=== PATIENT | female | born 1940 | race Caucasian/White ===

== ENCOUNTER 2020-12-25 14:56 | Inpatient (IN) ==
[2020-12-25] MEDS ORDERED: flumazeniL 0.5 MG/5 ML VIAL IVP ONE ×2 (15:13→23:11)
[2020-12-25 15:44] LABS: Basophils % 0.3 %; Eosinophils % 0.5 %; Hematocrit 33.2 % (35.3-44.9); Hemoglobin 10.8 g/dL (11.5-15.4); Immature Granulocytes % 0.3 % (0-4); Lymphocytes # 0.7 K/mcL (0.6-4.6); Lymphocytes % 12.8 %; Mean Corpuscular HGB Conc 32.5 g/dL (31.6-35.5); Mean Corpuscular Hemoglobin 31.8 pg (28.0-33.3); Mean Corpuscular Volume 97.6 fL (83.0-100.0); Mean Platelet Volume 12.7 fL (9.4-12.4); Monocytes # 0.3 K/mcL (0.0-1.3); Monocytes % 5.9 %; Neutrophils # 4.6 K/mcL (1.6-8.9); Platelet Count 154 K/mcL (140-400); Red Cell Distribution Width 14.3 % (11.5-14.5); Segmented Neutrophils % 80.2 %; White Blood Count 5.7 K/mcL (4.3-11.1)
[2020-12-25 16:06] LABS: Alanine Aminotransferase 73 Units/L (7-52); Albumin 3.8 g/dL (3.5-5.7); Alkaline Phosphatase 315 Units/L (34-104); Aspartate Amino Transferase 90 Units/L (13-39); BUN/Creatinine Ratio 19 (6-26); Bilirubin,Direct 0.1 mg/dL (0.0-0.2); Bilirubin,Indirect 0.3 mg/dL (0.0-1.0); Bilirubin,Total 0.4 mg/dL (0.3-1.0); Blood Urea Nitrogen 36 mg/dL (8-23); Carbon Dioxide 30 mEq/L (23-29); Chloride 95 mEq/L (98-107); Globulin 3.9 g/dL (2.4-3.5); Glucose 212 mg/dL (70-105); Osmolality,Calculated 297 (280-300); Potassium 4.3 mEq/L (3.5-5.1); Sodium 136 mEq/L (136-145); Total Protein 7.7 g/dL (6.4-8.9); Troponin I < 0.03 ng/mL (< 0.04); eGFR For African Americans 32 (> 60); eGFR For Non-African Americans 26 (> 60)
[2020-12-25 16:32] LABS: Amorphous Sediment,Urine Few per hpf (None-Few); Bilirubin,Urine Negative (Negative); Blood,Urine Negative (Negative); Clarity,Urine Turbid (Clear); Color,Urine Light-Yellow (Yellow); Glucose,Urine (UA) Normal (Normal); Hyaline Casts,Urine Many per lpf (None Seen); Ketones,Urine Negative (Negative); Leukocyte Esterase,Urine Negative (Negative); Mucus,Urine Few per lpf (None-Few); Nitrite,Urine Negative (Negative); Protein,Urine 70 mg/dL (Neg-Trace); RBC,Urine 0-3 per hpf (0-3); Specific Gravity,Urine 1.014 (1.010-1.025); Squamous Epithelial Cell,Urine Few per hpf (None-Few); Urobilinogen,Urine Normal (Normal); WBC,Urine 0-3 per hpf (0-3)
[2020-12-25] MEDS ORDERED: Furosemide 20 MG/2 ML VIAL IVP ONE (16:45)
[2020-12-25] MEDS ORDERED: Perflutren Lipid Microsphere 1.3 ML in 0.9 % Sodium Chloride 8.7 ML IVP PRN (17:05)
[2020-12-25 17:11] LABS: Influenza A PCR Negative (Negative); Influenza B PCR Negative (Negative); Resp. Syncytial Virus PCR Negative (Negative)
[2020-12-25 17:14] LABS: SARS-CoV-2 by PCR (In House) Negative (Negative)
[2020-12-25 18:31] LABS: ABG Base Excess 4 mEq/L (-2 to 3); ABG HCO3 30 mEq/L (21-27); ABG Oxygen Saturation 94 % (95-98); ABG PCO2 50 mmHg (35-45); ABG PH 7.39 pH Units (7.32-7.45); ABG PO2 73 mmHg (85-104); ABG TCO2 31 mEq/L (20-26); Blood Gas FiO2 3.5 (1-15=lpm or21-100=%)
[2020-12-25] MEDS ORDERED: D5% in Water 1,000 ML IVC PRN (19:56)
[2020-12-25] MEDS ORDERED: Dextrose Gel 15 GM/37.5 ML TUBE PO PRN ×2 (19:56)
[2020-12-25] MEDS: Furosemide 20 MG/2 ML VIAL IVP SCH (20:31)
[2020-12-25] MEDS: *HR* Heparin 5,000 UNIT/ML VIAL SQ SCH (20:31)
[2020-12-25] MEDS ORDERED: Morphine Sulfate 2 MG/ML SYRINGE IVP ONE (20:49)
[2020-12-25] MEDS ORDERED: *HR* LORazepam 2 MG/ML VIAL IVP ONE (22:16)
[2020-12-25] MEDS: Insulin LISPRO 300 UNITS/3 ML VIAL SUBQ SCH (22:43)
[2020-12-25] MEDS: cloNIDine HCL 0.1 MG TABLET PO SCH (22:51)
[2020-12-25] MEDS: Naloxone 0.4 MG/ML INJ IVP PRN ×2 (23:11→23:15)
[2020-12-25 23:18] LABS: ABG Base Excess 5 mEq/L (-2 to 3); ABG HCO3 33 mEq/L (21-27); ABG Oxygen Saturation 97 % (95-98); ABG PCO2 67 mmHg (35-45); ABG PO2 99 mmHg (85-104); ABG TCO2 35 mEq/L (20-26); Blood Gas FiO2 4.5 (1-15=lpm or21-100=%)
[2020-12-25] MEDS: Ipratropium/Albuterol Neb 3 ML IH PRN (23:33)
[2020-12-26 03:49] LABS: Basophils % 0.2 %; Eosinophils % 0.8 %; Hematocrit 29.3 % (35.3-44.9); Hemoglobin 9.4 g/dL (11.5-15.4); Immature Granulocytes % 0.2 % (0-4); Lymphocytes % 18.6 %; Mean Corpuscular HGB Conc 32.1 g/dL (31.6-35.5); Mean Corpuscular Hemoglobin 31.1 pg (28.0-33.3); Mean Platelet Volume 12.4 fL (9.4-12.4); Monocytes # 0.6 K/mcL (0.0-1.3); Monocytes % 10.7 %; Neutrophils # 3.6 K/mcL (1.6-8.9); Nucleated Red Blood Cells 0.4 /100 WBC (0); Platelet Count 136 K/mcL (140-400); Red Blood Count 3.02 M/mcL (3.82-4.97); Segmented Neutrophils % 69.5 %; White Blood Count 5.2 K/mcL (4.3-11.1)
[2020-12-26 03:53] LABS: Calcium 6.5 mg/dL (8.6-10.3); Magnesium 1.7 mg/dL (1.6-2.6); Phosphorous 3.7 mg/dL (2.7-4.5); Potassium 4.1 mEq/L (3.5-5.1)
[2020-12-26 04:07] LABS: INR 1.2; Prothrombin Time 13.4 Seconds (9.4-12.1)
[2020-12-26 04:08] LABS: Thyroid Stimulating Hormone 3.201 mcIU/mL (0.340-5.600)
[2020-12-26 04:09] LABS: Activated Partial Thrombo Time 49.7 Seconds (26.0-36.0)
[2020-12-26] MEDS: *HR* Heparin 5,000 UNIT/ML VIAL SQ SCH ×2 (06:00→16:42)
[2020-12-26] MEDS: Insulin LISPRO 300 UNITS/3 ML VIAL SUBQ SCH ×4 (07:17→20:15)
[2020-12-26] MEDS: cloNIDine HCL 0.1 MG TABLET PO SCH ×2 (08:32→20:48)
[2020-12-26] MEDS: lisinopriL 5 MG TABLET PO SCH (08:32)
[2020-12-26] MEDS: Furosemide 20 MG/2 ML VIAL IVP SCH ×2 (08:32→20:48)
[2020-12-26] MEDS: Ipratropium/Albuterol Neb 3 ML IH PRN ×2 (10:52→21:06)
[2020-12-26] MEDS: *HR* Dextrose 50 % in Water (Syg) 50 ML SYRINGE IVP PRN (11:20)
[2020-12-26 12:38] LABS: Albumin 3.1 g/dL (3.5-5.7); Albumin/Globulin Ratio 0.9 (1.1-2.2); Bilirubin,Direct 0.1 mg/dL (0.0-0.2); Bilirubin,Indirect 0.2 mg/dL (0.0-1.0); Bilirubin,Total 0.3 mg/dL (0.3-1.0); Globulin 3.4 g/dL (2.4-3.5); Total Protein 6.5 g/dL (6.4-8.9)
[2020-12-26 14:37] LABS: Total Protein,Pleural Fluid 2.7 g/dL
[2020-12-26 16:16] LABS: RBC,Pleural Fluid 2000 RBC/mcL
[2020-12-26 16:44] LABS: Appearance of Pleural Fl Hazy (Clear)
[2020-12-26] MEDS ORDERED: Acetaminophen 325 MG TABLET PO PRN ×2 (20:59→22:05)
[2020-12-27 05:14] LABS: Hematocrit 28.8 % (35.3-44.9); Hemoglobin 9.8 g/dL (11.5-15.4); Mean Corpuscular Hemoglobin 32.8 pg (28.0-33.3); Mean Corpuscular Volume 96.3 fL (83.0-100.0); Mean Platelet Volume 12.7 fL (9.4-12.4); Platelet Count 164 K/mcL (140-400); Red Blood Count 2.99 M/mcL (3.82-4.97); White Blood Count 5.9 K/mcL (4.3-11.1)
[2020-12-27 05:48] LABS: Albumin 2.8 g/dL (3.5-5.7); Albumin/Globulin Ratio 0.8 (1.1-2.2); Bilirubin,Total 0.3 mg/dL (0.3-1.0); Calcium 6.6 mg/dL (8.6-10.3); Globulin 3.5 g/dL (2.4-3.5); Potassium 4.6 mEq/L (3.5-5.1); Total Protein 6.3 g/dL (6.4-8.9)
[2020-12-27] MEDS: *HR* Heparin 5,000 UNIT/ML VIAL SQ SCH ×2 (06:37→17:44)
[2020-12-27] MEDS: *HR* Dextrose 50 % in Water (Syg) 50 ML SYRINGE IVP PRN (07:41)
[2020-12-27] MEDS: Insulin LISPRO 300 UNITS/3 ML VIAL SUBQ SCH ×4 (07:41→20:24)
[2020-12-27] MEDS: cloNIDine HCL 0.1 MG TABLET PO SCH (07:42)
[2020-12-27] MEDS: lisinopriL 5 MG TABLET PO SCH (07:42)
[2020-12-27 09:51] LABS: Phosphorous 3.9 mg/dL (2.7-4.5); Uric Acid 5.9 mg/dL (2.3-7.6)
[2020-12-27] MEDS ORDERED: 0.9 % Sodium Chloride 1,000 ML ONE (11:07)
[2020-12-27] MEDS ORDERED: 0.9 % Sodium Chloride 1,000 ML IVC ONE (11:17)
[2020-12-27 11:45] LABS: Hepatitis B Surface Antigen Nonreactive (Nonreactive)
[2020-12-27 11:52] LABS: Basophils % 0.3 %; Eosinophils # 0.1 K/mcL (0.0-0.6); Eosinophils % 1.2 %; Hematocrit 28.1 % (35.3-44.9); Hemoglobin 9.1 g/dL (11.5-15.4); Immature Granulocytes % 0.2 % (0-4); Lymphocytes # 1.3 K/mcL (0.6-4.6); Lymphocytes % 20.3 %; Mean Corpuscular HGB Conc 32.4 g/dL (31.6-35.5); Mean Corpuscular Hemoglobin 31.8 pg (28.0-33.3); Mean Corpuscular Volume 98.3 fL (83.0-100.0); Mean Platelet Volume 11.7 fL (9.4-12.4); Monocytes # 0.8 K/mcL (0.0-1.3); Monocytes % 11.5 %; Neutrophils # 4.4 K/mcL (1.6-8.9); Platelet Count 116 K/mcL (140-400); Red Blood Count 2.86 M/mcL (3.82-4.97); Red Cell Distribution Width 14.1 % (11.5-14.5); Segmented Neutrophils % 66.5 %; White Blood Count 6.6 K/mcL (4.3-11.1)
[2020-12-27 12:14] LABS: Hepatitis B Core IgM Nonreactive (Nonreactive); Hepatitis C Virus Antibody Nonreactive (Nonreactive)
[2020-12-27 12:15] LABS: Alanine Aminotransferase 41 Units/L (7-52); Albumin 2.7 g/dL (3.5-5.7); Albumin/Globulin Ratio 0.8 (1.1-2.2); Alkaline Phosphatase 238 Units/L (34-104); Aspartate Amino Transferase 47 Units/L (13-39); BUN/Creatinine Ratio 19 (6-26); Bilirubin,Total 0.3 mg/dL (0.3-1.0); Blood Urea Nitrogen 41 mg/dL (8-23); Calcium 6.5 mg/dL (8.6-10.3); Carbon Dioxide 31 mEq/L (23-29); Chloride 100 mEq/L (98-107); Globulin 3.2 g/dL (2.4-3.5); Glucose 122 mg/dL (70-105); Osmolality,Calculated 299 (280-300); Potassium 4.1 mEq/L (3.5-5.1); Sodium 139 mEq/L (136-145); Total Protein 5.9 g/dL (6.4-8.9); Troponin I < 0.03 ng/mL (< 0.04); eGFR For African Americans 26 (> 60); eGFR For Non-African Americans 22 (> 60)
[2020-12-27 12:16] LABS: Hepatitis A Antibody IgM Nonreactive (Nonreactive)
[2020-12-27 13:51] LABS: Bacteria,Urine Few per hpf (None-Few); Bilirubin,Urine Negative (Negative); Blood,Urine Large (Negative); Clarity,Urine Turbid (Clear); Color,Urine Light-Yellow (Yellow); Glucose,Urine (UA) Normal (Normal); Hyaline Casts,Urine Few per lpf (None Seen); Ketones,Urine Negative (Negative); Leukocyte Esterase,Urine Large (Negative); Mucus,Urine Few per lpf (None-Few); Nitrite,Urine Negative (Negative); Protein,Urine 50 mg/dL (Neg-Trace); RBC,Urine TNTC per hpf (0-3); Specific Gravity,Urine 1.013 (1.010-1.025); Urobilinogen,Urine Normal (Normal); WBC,Urine 50-100 per hpf (0-3)
[2020-12-27] MEDS: Piperacillin/Tazobactam 3.375 GM in 0.9 % Sodium Chloride Mini Bag 100 ML IVPB SCH (16:07)
[2020-12-27] MEDS ORDERED: polyethylene glycoL 3350 17 GM POWD.PACK PO ONE (20:00)
[2020-12-27] MEDS ORDERED: Albumin 25% 25gram/100mL 25 GM/100 ML IV.SOLN IVPB ONE (21:55)
[2020-12-27] MEDS ORDERED: Furosemide 20 MG/2 ML VIAL IVP ONE (21:55)
[2020-12-27 23:10] LABS: Protein/Creatinine Ratio,Urine 1.59 mg/mg (0.00-0.20); Sodium, Urine 40.6 mEq/L
[2020-12-28] MEDS: Piperacillin/Tazobactam 3.375 GM in 0.9 % Sodium Chloride Mini Bag 100 ML IVPB SCH ×4 (00:50→23:51)
[2020-12-28] MEDS: Ondansetron 4 MG/2 ML VIAL IVP PRN (01:50)
[2020-12-28] MEDS ORDERED: Furosemide 20 MG/2 ML VIAL IVP ONE (01:57)
[2020-12-28] MEDS ORDERED: Acetaminophen 325 MG TABLET PO PRN ×2 (02:01→14:45)
[2020-12-28] MEDS: *HR* HYDROcodone/Acet 5/325 mg TABLET PO PRN ×2 (02:26→10:11)
[2020-12-28] MEDS: *HR* Heparin 5,000 UNIT/ML VIAL SQ SCH (05:45)
[2020-12-28 05:49] LABS: Hematocrit 30.2 % (35.3-44.9); Hemoglobin 9.7 g/dL (11.5-15.4); Mean Corpuscular HGB Conc 32.1 g/dL (31.6-35.5); Mean Corpuscular Hemoglobin 31.5 pg (28.0-33.3); Mean Corpuscular Volume 98.1 fL (83.0-100.0); Mean Platelet Volume 12.8 fL (9.4-12.4); Red Blood Count 3.08 M/mcL (3.82-4.97); White Blood Count 7.3 K/mcL (4.3-11.1)
[2020-12-28 06:06] LABS: Albumin 3.2 g/dL (3.5-5.7); Albumin/Globulin Ratio 0.9 (1.1-2.2); Bilirubin,Total 0.4 mg/dL (0.3-1.0); Globulin 3.4 g/dL (2.4-3.5); Potassium 4.6 mEq/L (3.5-5.1); Total Protein 6.6 g/dL (6.4-8.9)
[2020-12-28] MEDS: Insulin LISPRO 300 UNITS/3 ML VIAL SUBQ SCH ×4 (07:31→20:53)
[2020-12-28] MEDS: Furosemide 20 MG TABLET PO SCH ×2 (09:46→20:50)
[2020-12-28] MEDS ORDERED: *HR* HYDROcodone/Acet 5/325 mg TABLET PO PRN (14:25)
[2020-12-28] MEDS ORDERED: *HR* Heparin 5,000 UNIT/ML VIAL IVP ONE (14:52)
[2020-12-28] MEDS ORDERED: *HR* Heparin 5,000 UNIT/ML VIAL IVP PRN ×2 (14:52)
[2020-12-28] MEDS: Heparin 25,000UNIT/250ML 1/2NS 25,000 UNIT/250 ML IV.SOLN IVC SCH (17:26)
[2020-12-28 17:28] LABS: Hematocrit 31.8 % (35.3-44.9); Hemoglobin 10.2 g/dL (11.5-15.4); Mean Corpuscular HGB Conc 32.1 g/dL (31.6-35.5); Mean Corpuscular Hemoglobin 31.6 pg (28.0-33.3); Mean Corpuscular Volume 98.5 fL (83.0-100.0); Mean Platelet Volume 11.9 fL (9.4-12.4); Platelet Count 133 K/mcL (140-400); Red Blood Count 3.23 M/mcL (3.82-4.97); Red Cell Distribution Width 13.9 % (11.5-14.5)
[2020-12-28] MEDS: hydrALAZINE 25 MG TABLET PO SCH (17:28)
[2020-12-28] MEDS: Acetaminophen 325 MG TABLET PO PRN ×2 (17:28→23:52)
[2020-12-28] MEDS: Isosorbide MONOnitrate (24 HR) 30 MG TAB.ER.24H PO SCH (17:28)
[2020-12-28 17:42] LABS: INR 1.2; Prothrombin Time 12.9 Seconds (9.4-12.1)
[2020-12-28 17:44] LABS: Heparin anti-factor XA UFH 0.04 IU/mL (0.30-0.70)
[2020-12-28] MEDS: Ipratropium/Albuterol Neb 3 ML IH PRN (18:33)
[2020-12-28] MEDS: polyethylene glycoL 3350 17 GM POWD.PACK PO SCH (23:50)
[2020-12-29] MEDS: hydrALAZINE 25 MG TABLET PO SCH ×3 (00:01→16:35)
[2020-12-29 01:50] LABS: Hemoglobin 9.2 g/dL (11.5-15.4); Mean Corpuscular HGB Conc 32.9 g/dL (31.6-35.5); Mean Corpuscular Hemoglobin 32.1 pg (28.0-33.3); Mean Corpuscular Volume 97.6 fL (83.0-100.0); Platelet Count 124 K/mcL (140-400); Red Blood Count 2.87 M/mcL (3.82-4.97); Red Cell Distribution Width 13.8 % (11.5-14.5); White Blood Count 7.3 K/mcL (4.3-11.1)
[2020-12-29 02:05] LABS: Albumin 2.9 g/dL (3.5-5.7); Albumin/Globulin Ratio 0.9 (1.1-2.2); Bilirubin,Total 0.3 mg/dL (0.3-1.0); Calcium 7.1 mg/dL (8.6-10.3); Globulin 3.2 g/dL (2.4-3.5); Potassium 4.6 mEq/L (3.5-5.1); Total Protein 6.1 g/dL (6.4-8.9)
[2020-12-29] MEDS: *HR* Dextrose 50 % in Water (Syg) 50 ML SYRINGE IVP PRN (07:59)
[2020-12-29] MEDS: Insulin LISPRO 300 UNITS/3 ML VIAL SUBQ SCH ×4 (08:02→20:42)
[2020-12-29] MEDS: Isosorbide MONOnitrate (24 HR) 30 MG TAB.ER.24H PO SCH (08:03)
[2020-12-29] MEDS: polyethylene glycoL 3350 17 GM POWD.PACK PO SCH (08:03)
[2020-12-29] MEDS: Piperacillin/Tazobactam 3.375 GM in 0.9 % Sodium Chloride Mini Bag 100 ML IVPB SCH ×2 (08:04→16:41)
[2020-12-29] MEDS: Ipratropium/Albuterol Neb 3 ML IH PRN (08:33)
[2020-12-29] MEDS: Acetaminophen 325 MG TABLET PO PRN (12:52)
[2020-12-29] MEDS: Furosemide 40 MG TABLET PO SCH (12:55)
[2020-12-29] MEDS: Albumin 25% 25gram/100mL 25 GM/100 ML IV.SOLN IVPB SCH (16:35)
[2020-12-29 21:26] LABS: Fluid Source for Cholesterol PLEURAL FLUID
[2020-12-30] MEDS: Albumin 25% 25gram/100mL 25 GM/100 ML IV.SOLN IVPB SCH ×4 (00:31→23:02)
[2020-12-30] MEDS: hydrALAZINE 25 MG TABLET PO SCH ×4 (00:32→23:02)
[2020-12-30 05:05] LABS: Hematocrit 28.1 % (35.3-44.9); Mean Corpuscular Hemoglobin 31.4 pg (28.0-33.3); Mean Corpuscular Volume 97.9 fL (83.0-100.0); Mean Platelet Volume 12.8 fL (9.4-12.4); Platelet Count 114 K/mcL (140-400); Red Blood Count 2.87 M/mcL (3.82-4.97); Red Cell Distribution Width 14.1 % (11.5-14.5); White Blood Count 5.1 K/mcL (4.3-11.1)
[2020-12-30 05:09] LABS: Albumin 3.8 g/dL (3.5-5.7); Albumin/Globulin Ratio 1.2 (1.1-2.2); Bilirubin,Total 0.4 mg/dL (0.3-1.0); Calcium 7.3 mg/dL (8.6-10.3); Globulin 3.2 g/dL (2.4-3.5); Potassium 4.6 mEq/L (3.5-5.1)
[2020-12-30] MEDS: Piperacillin/Tazobactam 3.375 GM in 0.9 % Sodium Chloride Mini Bag 100 ML IVPB SCH ×2 (06:05→17:37)
[2020-12-30] MEDS: Heparin 25,000UNIT/250ML 1/2NS 25,000 UNIT/250 ML IV.SOLN IVC SCH ×2 (07:19→08:03)
[2020-12-30] MEDS: polyethylene glycoL 3350 17 GM POWD.PACK PO SCH (08:04)
[2020-12-30] MEDS: Isosorbide MONOnitrate (24 HR) 30 MG TAB.ER.24H PO SCH (08:06)
[2020-12-30] MEDS: Insulin LISPRO 300 UNITS/3 ML VIAL SUBQ SCH ×4 (08:24→20:44)
[2020-12-30] MEDS: Furosemide 40 MG TABLET PO SCH (09:46)
[2020-12-30 10:41] LABS: Cholesterol,Body Fluid 38 mg/dL
[2020-12-30] MEDS: Ipratropium/Albuterol Neb 3 ML IH PRN (11:35)
[2020-12-30] MEDS: Furosemide 20 MG TABLET PO SCH (17:36)
[2020-12-31] MEDS: Ipratropium/Albuterol Neb 3 ML IH PRN ×2 (00:18→17:11)
[2020-12-31 04:43] LABS: Basophils % 0.4 %; Eosinophils # 0.1 K/mcL (0.0-0.6); Eosinophils % 1.6 %; Hematocrit 25.1 % (35.3-44.9); Hemoglobin 8.3 g/dL (11.5-15.4); Immature Granulocytes % 0.4 % (0-4); Lymphocytes % 18.9 %; Mean Corpuscular HGB Conc 33.1 g/dL (31.6-35.5); Mean Corpuscular Hemoglobin 32.4 pg (28.0-33.3); Mean Platelet Volume 12.9 fL (9.4-12.4); Monocytes # 0.7 K/mcL (0.0-1.3); Monocytes % 13.1 %; Neutrophils # 3.6 K/mcL (1.6-8.9); Platelet Count 104 K/mcL (140-400); Red Blood Count 2.56 M/mcL (3.82-4.97); Red Cell Distribution Width 14.4 % (11.5-14.5); Segmented Neutrophils % 65.6 %; White Blood Count 5.5 K/mcL (4.3-11.1)
[2020-12-31 05:00] LABS: Calcium 7.6 mg/dL (8.6-10.3); Potassium 4.5 mEq/L (3.5-5.1)
[2020-12-31] MEDS: Furosemide 20 MG TABLET PO SCH ×2 (05:16→17:21)
[2020-12-31] MEDS: Piperacillin/Tazobactam 3.375 GM in 0.9 % Sodium Chloride Mini Bag 100 ML IVPB SCH ×2 (05:17→17:22)
[2020-12-31] MEDS: Insulin LISPRO 300 UNITS/3 ML VIAL SUBQ SCH ×4 (07:18→20:40)
[2020-12-31] MEDS: polyethylene glycoL 3350 17 GM POWD.PACK PO SCH (08:57)
[2020-12-31] MEDS: Albumin 25% 25gram/100mL 25 GM/100 ML IV.SOLN IVPB SCH (09:05)
[2020-12-31] MEDS: hydrALAZINE 25 MG TABLET PO SCH ×3 (09:05→23:49)
[2020-12-31] MEDS: Isosorbide MONOnitrate (24 HR) 30 MG TAB.ER.24H PO SCH (09:05)
[2020-12-31] MEDS: Ondansetron 4 MG/2 ML VIAL IVP PRN (09:14)
[2020-12-31] MEDS ORDERED: Furosemide 40 MG/4 ML VIAL IVP ONE (13:31)
[2020-12-31] MEDS ORDERED: Isovue-370 500 ML BOTTLE IVP ONE (17:06)
[2020-12-31] MEDS: Lactobacillus 1 EACH CAP.SPRINK PO SCH (17:21)
[2020-12-31] MEDS: Vancomycin Oral Soln 125 MG/2.5 ML UDC PO SCH ×3 (17:22→20:08)
[2020-12-31] MEDS: Ipratropium/Albuterol Neb 3 ML IH SCH ×2 (22:50→22:54)
[2021-01-01] MEDS: Ondansetron 4 MG/2 ML VIAL IVP PRN (02:57)
[2021-01-01] MEDS: Ipratropium/Albuterol Neb 3 ML IH SCH ×6 (03:41→23:38)
[2021-01-01] MEDS: Pantoprazole 40 MG VIAL IVP SCH ×2 (04:08→16:28)
[2021-01-01 05:09] LABS: Basophils % 0.3 %; Eosinophils % 0.2 %; Hematocrit 25.4 % (35.3-44.9); Hemoglobin 8.5 g/dL (11.5-15.4); Immature Granulocytes % 0.8 % (0-4); Lymphocytes # 0.8 K/mcL (0.6-4.6); Lymphocytes % 12.3 %; Mean Corpuscular HGB Conc 33.5 g/dL (31.6-35.5); Mean Corpuscular Hemoglobin 32.8 pg (28.0-33.3); Mean Corpuscular Volume 98.1 fL (83.0-100.0); Mean Platelet Volume 12.7 fL (9.4-12.4); Monocytes # 0.5 K/mcL (0.0-1.3); Monocytes % 7.3 %; Neutrophils # 4.9 K/mcL (1.6-8.9); Platelet Count 101 K/mcL (140-400); Red Blood Count 2.59 M/mcL (3.82-4.97); Red Cell Distribution Width 14.5 % (11.5-14.5); Segmented Neutrophils % 79.1 %; White Blood Count 6.2 K/mcL (4.3-11.1)
[2021-01-01 05:32] LABS: Calcium 7.8 mg/dL (8.6-10.3); Potassium 4.1 mEq/L (3.5-5.1)
[2021-01-01] MEDS: Furosemide 20 MG TABLET PO SCH ×2 (06:04→16:28)
[2021-01-01] MEDS: Piperacillin/Tazobactam 3.375 GM in 0.9 % Sodium Chloride Mini Bag 100 ML IVPB SCH ×2 (06:07→16:27)
[2021-01-01] MEDS: polyethylene glycoL 3350 17 GM POWD.PACK PO SCH (10:11)
[2021-01-01] MEDS: Insulin LISPRO 300 UNITS/3 ML VIAL SUBQ SCH ×4 (10:11→23:55)
[2021-01-01] MEDS: hydrALAZINE 25 MG TABLET PO SCH ×2 (10:11→16:28)
[2021-01-01] MEDS: Lactobacillus 1 EACH CAP.SPRINK PO SCH (10:11)
[2021-01-01] MEDS: Isosorbide MONOnitrate (24 HR) 30 MG TAB.ER.24H PO SCH (10:11)
[2021-01-01 11:28] VITALS: TEMP 97.5
[2021-01-01 15:52] VITALS: BP 131/53; PULSE 66
[2021-01-01 20:28] VITALS: O2SAT 97
[2021-01-02] MEDS: hydrALAZINE 25 MG TABLET PO SCH (00:04)
[2021-01-02] MEDS ORDERED: Albumin 25% 25gram/100mL 25 GM/100 ML IV.SOLN IVPB ONE (03:17)
[2021-01-02] MEDS ORDERED: Haloperidol Lactate 5 MG/ML VIAL IVP PRN (03:23)
[2021-01-02] MEDS ORDERED: *HR* LORazepam Oral Conc 2 MG/ML SL PRN (03:23)
[2021-01-02] MEDS ORDERED: Morphine Sulfate 2 MG/ML SYRINGE IVP PRN (03:23)
[2021-01-02] MEDS ORDERED: Scopolamine Patch 1.5 MG PATCH.TD72 TD SCH (03:30)
[2021-01-02] MEDS: Ipratropium/Albuterol Neb 3 ML IH SCH (04:00)
== END 2021-01-02 05:30 | disposition expired | DRG 193 ==
LOC: 2NENU 14:56 → EMEROOARM 14:56 → SUATTDRO 17:29 → 2NENU 18:26 → SUATTDRO 12-26 12:04
PROVIDERS: ADMIT Internal Medicine; ATTEND Hospitalist